=== PATIENT | female | born 1985 | race Caucasian/White ===

== ENCOUNTER → 2016-11-27 | Outpatient (CLI) | payer BC | END | disposition home or self-care (01) | LOC: C.PAPS 13:31 | PROVIDERS: ATTEND Obstetrics & Gynecology | DX: Z01.419 Encounter for gynecological examination (general) (routine) without abnormal findings (principal) ==

== ENCOUNTER → 2016-12-08 | Outpatient (CLI) | payer BC ==
--- NOTE | 2016-12-08 13:25 | MAMMOGRAPHY REPORT ---
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 The patient reports she can feel the lump as well and thinks it has felt l vini that for some time. No skin erythema, thickening, or nipple discharge. No family history of br east cancer. COMPARISON: No prior exams were available for comparison. FINDINGS: Real-time high-resolution sonographic evaluation was performed in the area of palpable luis alfredo mp pointed out by the patient (10:00 right breast, 8-9 cm from the nipple). On palpation, there is a firm ridge of tissue near the axillary tail/axillary crease. On ultrasound, there is a broad fay sition from dense glandular tissue to more pliable fatty echotexture tissue in the 10:00 right breas t in the area of palpable concern. No suspicious solid or cystic mass is identified. IMPRESSION: ACR BI-RADS CATEGORY 2: BENIGN The palpable lump identified by the patient's physician in the 10:00 right breast, 8-9 cm from the n ipple is thought to correlate with the interface between a dense ridge of glandular tissue and softe r fatty tissue, and is benign based on imaging. However, biopsy of a clinically suspicious mass jaimie uld not be precluded by negative imaging. These results and recommendations were discussed with the patient at the time of the exam. Sylwia Woods M.D. ay/:12/08/2016 09:10:52 Bird Keeper: Vanessa SWEET)(Hina), [facility] letter sent: Normal 1/2 BI-RADS Code: ACR BI-RADS Category 2: Benign
== END | disposition home or self-care (01) ==
LOC: C.MAMM 08:51
PROVIDERS: ATTEND Obstetrics & Gynecology
DX: N63 Unspecified lump in breast (principal)

== ENCOUNTER → 2017-06-02 | Outpatient (CLI) | payer BC | END | disposition home or self-care (01) | LOC: C.LAB1850 09:45 | PROVIDERS: ATTEND Obstetrics & Gynecology | DX: Z32.00 Encounter for pregnancy test, result unknown (principal) ==

== ENCOUNTER → 2017-06-18 | Outpatient (CLI) | payer BC ==
[2017-06-18 17:56] LABS: URINE APPEARANCE CLEAR (CLEAR); URINE BILIRUBIN NEG (NEG); URINE COLOR YELLOW; URINE NITRITE NEG (NEG); URINE PH 6.5 (4.5-7.5); URINE SPECIFIC GRAVITY 1.019 (1.000-1.030); UROBILINOGEN NEG (NEG)
[2017-06-18 17:59] LABS: MANUAL MICROSCOPIC REQUIRED? NO; REVIEW REQ? NO
== END | disposition home or self-care (01) ==
LOC: C.LABSPEC 15:54
PROVIDERS: ATTEND Obstetrics & Gynecology
DX: Z34.01 Encounter for supervision of normal first pregnancy, first trimester (principal)

== ENCOUNTER → 2017-06-24 | Outpatient (CLI) | payer BC ==
[2017-06-24 10:09] LABS: BASO % 0.3 %; BASO ABS # 0.02 K/uL (0-0.2); COMPLETE YES; EOS % 1.1 %; HEMATOCRIT 38.1 % (37-47); IG% 0.3 %; LYMPH % 19.8 %; LYMPH ABS # 1.58 K/uL (1.2-3.4); MEAN CELL VOLUME 92.9 fL (80-100); MEAN CORPUSCULAR HEMOGLOBIN 31.5 pg (25-34); MEAN CORPUSCULAR HGB CONC 33.9 g/dl (32-36); MEAN PLATELET VOLUME 9.8 fL (7.4-10.4); MONO % 7.6 %; NEUT % 70.9 %; PLATELET COUNT 257 K/uL (130-400)
[2017-06-28 10:23] LABS: CHLAMYDIA TRACH RNA*** NOT DETECTED (NOT DETECTED); GC (NEIS GONORRHOEAE)RNA** NOT DETECTED (NOT DETECTED)
== END | disposition home or self-care (01) ==
LOC: C.LAB1850 08:54
PROVIDERS: ATTEND Obstetrics & Gynecology
DX: Z34.01 Encounter for supervision of normal first pregnancy, first trimester (principal)

== ENCOUNTER → 2017-10-13 | Outpatient (CLI) | payer BC ==
[2017-10-13 12:17] LABS: HEMATOCRIT 33.9 % (37-47)
[2017-10-13 12:28] LABS: GTGD 50 Grams
[2017-10-13 12:41] LABS: URINE APPEARANCE CLEAR (CLEAR); URINE BILIRUBIN NEG (NEG); URINE COLOR YELLOW; URINE EPITHELIAL CELL AUTO 0-5 /lpf (0-5); URINE NITRITE NEG (NEG); URINE SPECIFIC GRAVITY 1.003 (1.000-1.030); UROBILINOGEN NEG (NEG)
[2017-10-13 12:48] LABS: MANUAL MICROSCOPIC REQUIRED? NO; REVIEW REQ? NO
== END | disposition home or self-care (01) ==
LOC: C.LAB1850 10:04
PROVIDERS: ATTEND Obstetrics & Gynecology
DX: Z34.03 Encounter for supervision of normal first pregnancy, third trimester (principal)

== ENCOUNTER → 2017-11-21 | Outpatient (CLI) | payer BC ==
[2017-11-21 14:15] LABS: HEMATOCRIT 34.4 % (37-47); HEMOGLOBIN 12.2 g/dL (12.0-16.0); MEAN CELL VOLUME 92.5 fL (80-100); MEAN CORPUSCULAR HEMOGLOBIN 32.8 pg (25-34); MEAN CORPUSCULAR HGB CONC 35.5 g/dl (32-36); MEAN PLATELET VOLUME 9.7 fL (7.4-10.4); PLATELET COUNT 216 K/uL (130-400); RED CELL DISTRIBUTION WIDTH CV 12.7 % (11.5-14.5); RED CELL DISTRIBUTION WIDTH SD 42.9 fL (36.4-46.3); WHITE BLOOD COUNT 10.84 K/uL (4.8-10.8)
[2017-11-21 14:38] LABS: ALBUMIN 2.7 gm/dl (3.4-5.0); ALKALINE PHOSPHATASE 101 U/L (45-117); ALT/SGPT 20 U/L (12-78); AST/SGOT 21 U/L (15-37); TOTAL PROTEIN 6.5 gm/dl (6.4-8.2); URIC ACID 3.6 mg/dl (2.6-7.2)
[2017-11-21 15:00] LABS: BASO % 0.2 %; BASO ABS # 0.02 K/uL (0-0.2); EOS % 0.8 %; EOS ABS # 0.09 K/uL (0-0.5); IG# 0.03 K/uL (0.00-0.02); LYMPH % 14.4 %; LYMPH ABS # 1.56 K/uL (1.2-3.4); MONO % 7.2 %; MONO ABS # 0.78 K/uL (0.11-0.59); NEUT % 77.1 %; NEUT ABS # 8.36 K/uL (1.4-6.5)
== END | disposition home or self-care (01) ==
LOC: C.LAB 13:44
PROVIDERS: ATTEND Obstetrics & Gynecology
DX: O16.9 Unspecified maternal hypertension, unspecified trimester (principal)

== ENCOUNTER → 2017-12-02 | Outpatient (CLI) | payer BC ==
[2017-12-02 17:15] LABS: HEMATOCRIT 35.8 % (37-47); HEMOGLOBIN 12.6 g/dL (12.0-16.0); MEAN CELL VOLUME 92.5 fL (80-100); MEAN CORPUSCULAR HEMOGLOBIN 32.6 pg (25-34); MEAN CORPUSCULAR HGB CONC 35.2 g/dl (32-36); MEAN PLATELET VOLUME 9.6 fL (7.4-10.4); PLATELET COUNT 215 K/uL (130-400); RED CELL DISTRIBUTION WIDTH CV 12.9 % (11.5-14.5); RED CELL DISTRIBUTION WIDTH SD 43.3 fL (36.4-46.3); WHITE BLOOD COUNT 11.01 K/uL (4.8-10.8)
[2017-12-02 17:45] LABS: ALKALINE PHOSPHATASE 117 U/L (45-117); ALT/SGPT 20 U/L (12-78); AST/SGOT 22 U/L (15-37)
== END | disposition home or self-care (01) ==
LOC: C.LAB1850 16:05
PROVIDERS: ATTEND Obstetrics & Gynecology
DX: O13.3 Gestational [pregnancy-induced] hypertension without significant proteinuria, third trimester (principal); Z3A.00 Weeks of gestation of pregnancy not specified

== ENCOUNTER → 2017-12-08 | Outpatient (CLI) | payer BC ==
[2017-12-08 12:09] LABS: HEMATOCRIT 36.5 % (37-47); HEMOGLOBIN 12.6 g/dL (12.0-16.0); MEAN CELL VOLUME 92.6 fL (80-100); MEAN CORPUSCULAR HGB CONC 34.5 g/dl (32-36); MEAN PLATELET VOLUME 9.8 fL (7.4-10.4); PLATELET COUNT 218 K/uL (130-400); RED CELL DISTRIBUTION WIDTH CV 12.8 % (11.5-14.5); RED CELL DISTRIBUTION WIDTH SD 43.5 fL (36.4-46.3); WHITE BLOOD COUNT 9.57 K/uL (4.8-10.8)
[2017-12-08 12:31] LABS: ALBUMIN 2.8 gm/dl (3.4-5.0); ALKALINE PHOSPHATASE 121 U/L (45-117); ALT/SGPT 20 U/L (12-78); AST/SGOT 19 U/L (15-37); TOTAL PROTEIN 6.6 gm/dl (6.4-8.2)
== END | disposition home or self-care (01) ==
LOC: C.LAB1850 10:26
PROVIDERS: ATTEND Obstetrics & Gynecology
DX: O13.3 Gestational [pregnancy-induced] hypertension without significant proteinuria, third trimester (principal)

== ENCOUNTER → 2017-12-08 | Outpatient (CLI) | payer BC | END | disposition home or self-care (01) | LOC: C.LABSPEC 11:14 | PROVIDERS: ATTEND Obstetrics & Gynecology | DX: Z34.03 Encounter for supervision of normal first pregnancy, third trimester (principal) ==

== ENCOUNTER → 2017-12-17 | Outpatient (CLI) | payer BC ==
[~2017-12-17] MED LIST: PRENTAB26 PO
[2017-12-17 13:31] LABS: HEMATOCRIT 36.4 % (37-47); HEMOGLOBIN 12.6 g/dL (12.0-16.0); MEAN CELL VOLUME 93.1 fL (80-100); MEAN CORPUSCULAR HEMOGLOBIN 32.2 pg (25-34); MEAN CORPUSCULAR HGB CONC 34.6 g/dl (32-36); PLATELET COUNT 219 K/uL (130-400); RED CELL DISTRIBUTION WIDTH CV 12.9 % (11.5-14.5); RED CELL DISTRIBUTION WIDTH SD 43.8 fL (36.4-46.3); WHITE BLOOD COUNT 10.98 K/uL (4.8-10.8)
[2017-12-17 14:05] LABS: ALBUMIN 2.7 gm/dl (3.4-5.0); ALKALINE PHOSPHATASE 129 U/L (45-117); ALT/SGPT 17 U/L (12-78); AST/SGOT 16 U/L (15-37); TOTAL PROTEIN 6.7 gm/dl (6.4-8.2)
== END | disposition home or self-care (01) ==
LOC: C.LAB1850 11:52
PROVIDERS: ATTEND Obstetrics & Gynecology
DX: O13.3 Gestational [pregnancy-induced] hypertension without significant proteinuria, third trimester (principal)

== ENCOUNTER → 2017-12-18 | Outpatient (CLI) | payer BC | END | disposition home or self-care (01) | LOC: C.LAB1850 11:44 | PROVIDERS: ATTEND Obstetrics & Gynecology | DX: O13.3 Gestational [pregnancy-induced] hypertension without significant proteinuria, third trimester (principal) ==

== ENCOUNTER 2017-12-19 18:58 | Outpatient (CLI) | payer BC ==
[~2017-12-19] VITALS: Ht 167.6 cm; Wt 63.0 kg
[2017-12-19 21:19] VITALS: Ht 167.6 cm; Wt 63.0 kg
[2017-12-20] MEDS ORDERED: PRENTAB26 PO ×2 (09:13)
== END 2017-12-19 21:14 | disposition home or self-care (01) ==
LOC: C.LD 18:58 → C.OPB 18:58
PROVIDERS: ATTEND Obstetrics & Gynecology
DX: O16.3 Unspecified maternal hypertension, third trimester (principal); Z3A.37 37 weeks gestation of pregnancy

== ENCOUNTER 2017-12-20 07:40 | Inpatient (IN) | payer BC ==
[~2017-12-20] VITALS: Ht 167.6 cm; Wt 78.9 kg
[2017-12-20] MEDS ORDERED: LACTATED RINGER'S 1000ML 1,000 ML IV PRN (08:25)
[2017-12-20] MEDS ORDERED: LACTATED RINGER'S 1000ML 500 ML IV PRN ×2 (08:25→14:28)
[2017-12-20] MEDS ORDERED: PATIENT'S HEIGHT AND/OR WEIGHT NEEDED SCH (08:30)
[2017-12-20] MEDS ORDERED: PATIENT'S ALLERGY INFO NEEDS ENTERED SCH (08:30)
[2017-12-20 08:50] LABS: HEMATOCRIT 35.3 % (37-47); HEMOGLOBIN 12.2 g/dL (12.0-16.0); MEAN CELL VOLUME 91.5 fL (80-100); MEAN CORPUSCULAR HEMOGLOBIN 31.6 pg (25-34); MEAN CORPUSCULAR HGB CONC 34.6 g/dl (32-36); MEAN PLATELET VOLUME 9.8 fL (7.4-10.4); PLATELET COUNT 215 K/uL (130-400); RED CELL DISTRIBUTION WIDTH CV 12.7 % (11.5-14.5); RED CELL DISTRIBUTION WIDTH SD 42.2 fL (36.4-46.3); WHITE BLOOD COUNT 10.44 K/uL (4.8-10.8)
[2017-12-20] MEDS: LACTATED RINGER'S 1000ML 1,000 ML IV SCH ×3 (09:00→19:32)
[2017-12-20] MEDS: OXYTOCIN 30 UNITS/500ML NSS IV PRN (09:02)
[2017-12-20 09:07] LABS: ALBUMIN 2.5 gm/dl (3.4-5.0); ALT/SGPT 19 U/L (12-78); BLOOD UREA NITROGEN 4 mg/dl (7-18); CALCIUM 8.2 mg/dl (8.5-10.1); CARBON DIOXIDE 21 mmol/L (21-32); CREATININE 0.65 mg/dl (0.60-1.20); GLUCOSE 92 mg/dl (70-99); POTASSIUM 3.5 mmol/L (3.5-5.1); SODIUM 138 mmol/L (136-145)
[2017-12-20 09:11] LABS: ALKALINE PHOSPHATASE 133 U/L (45-117); AST/SGOT 23 U/L (15-37); TOTAL PROTEIN 6.2 gm/dl (6.4-8.2)
[2017-12-20 09:12] VITALS: Ht 167.6 cm; Wt 78.9 kg
[2017-12-20] MEDS ORDERED: PRENTAB26 PO ×2 (09:13)
[2017-12-20] MEDS ORDERED: BUPIVACAINE 0.25% 30 ML VIAL ONE (14:21)
[2017-12-20] MEDS ORDERED: FENTANYL 2MCG/ML ROPIV 1.25MG/ML 100ML BAG EPI ONE (14:22)
[2017-12-20] MEDS: EpHEDrine SULFATE INJ 50 MG/ML AMP ONE (14:22)
[2017-12-20] MEDS ORDERED: FENTANYL CITRATE INJ 50 MCG/1 ML 2 ML VIAL ONE (14:22)
[2017-12-20] MEDS ORDERED: NALOXONE HCL INJ 1 MG in SODIUM CHLORIDE 0.9% 1000ML 1,000 ML IV PRN (14:28)
[2017-12-20] MEDS ORDERED: DiphenhydrAMINE HCL 50 MG/ML VIAL IV PRN (14:30)
[2017-12-20] MEDS ORDERED: NALOXONE HCL INJ 0.4 MG/1 ML VIAL/CARP IV PRN (14:30)
[2017-12-20] MEDS ORDERED: NALBUPHINE HCL INJ 10 MG/ML AMP IV PRN (14:30)
[2017-12-20] MEDS ORDERED: ONDANSETRON INJ 2 MG/ML 2 ML VIAL IV PRN (14:30)
[2017-12-20] MEDS ORDERED: EpHEDrine SULFATE INJ 50 MG/ML AMP IV PRN (14:30)
[2017-12-20] MEDS: FENTANYL 2MCG/ML ROPIV 1.25MG/ML 100ML BAG EPI PRN ×2 (18:59→22:30)
[2017-12-20] MEDS ORDERED: ACETAMINOPHEN 325 MG TAB PO STA (19:34)
[2017-12-20] MEDS ORDERED: ACETAMINOPHEN 325 MG TAB ONE (19:37)
[2017-12-21] MEDS: LACTATED RINGER'S 1000ML 1,000 ML IV SCH (03:30)
[2017-12-21] MEDS: FENTANYL 2MCG/ML ROPIV 1.25MG/ML 100ML BAG EPI PRN (05:20)
[2017-12-21] MEDS: OXYTOCIN 30 UNITS/500ML NSS IV PRN (07:00)
--- NOTE | 2017-12-21 07:07 | Anesthesia Procedure Note ---
Anesthesia Epidural Removal Nt Date & Time Dec 21, 2017 at 07:06 Vital Signs Pain Intensity: 0.0 Notes Mental Status: alert / awake / arousable, participated in evaluation Nausea / Vomiting: adequately controlled Pain: adequately controlled Airway Patency, RR, SpO2: stable & adequate BP & HR: stable & adequate Hydration State: stable & adequate Neuraxial Anesthesia: was administered, sensory block is resolving Anesthetic Complications: no major complications apparent, pt satisfied with anesthetic care Epidural: removed without complications, with tip intact
[2017-12-21] MEDS ORDERED: MISOPROSTOL 200 MCG TAB ONE (07:10)
[2017-12-21] MEDS ORDERED: ACETAMINOPHEN 325 MG TAB PO PRN (07:15)
[2017-12-21] MEDS ORDERED: OXYTOCIN 30 UNITS/500ML NSS IV PRN (07:15)
[2017-12-21] MEDS ORDERED: BENZOCAINE 20% AER SPR 82.5 GM CAN EXT PRN (07:15)
[2017-12-21] MEDS ORDERED: DIPHTHERIA/TETANUS/PERTUSSIS 0.5 ML SYR/VIAL IM. ONE (07:15)
[2017-12-21] MEDS ORDERED: MISOPROSTOL 200 MCG TAB PR SCH (07:15)
[2017-12-21] MEDS ORDERED: SUPERCREAM 0.870 % 15GM JAR EXT PRN (07:15)
[2017-12-21] MEDS ORDERED: HYDROCORTISONE ACETATE 25 MG SUPP PR PRN (07:15)
[2017-12-21] MEDS ORDERED: LANOLIN OINT EXT PRN (07:15)
[2017-12-21] MEDS: EpHEDrine SULFATE INJ 50 MG/ML AMP ONE (07:18)
--- NOTE | 2017-12-21 07:24 | DELIVERY SUMMARY ---
DATE OF OPERATION: 12/21/2017 PREOPERATIVE DIAGNOSES: 1. Gestational hypertension at full term. 2. Induction of labor. 3. Group B strep negative. POSTOPERATIVE DIAGNOSES: Same. PROCEDURE: Spontaneous vaginal deliver and repair of second degree perineal laceration. SURGEON: Kristin George MD. BAG FILLER MACHINE OPERATOR: None. ESTIMATED BLOOD LOSS: 600 mL. COMPLICATIONS: None. DISPOSITION: Stable in labor and delivery. DESCRIPTION: Ynes was in induction due to gestational hypertension at 37+ weeks. Her induction began with a Doyle bulb placed by my partner and on the morning of December 20, I assumed care of the patient after she had been started on Pitocin. Pitocin was run through the day and its progress was steady but slow. Eventually we reached 20 units of Pitocin and had still not created an adequate contraction pattern, therefore, an IUPC was placed and was used to titrate for adequate MUVs. Of note, the Pitocin dose required was fairly high and she ultimately was on 34 milliunits per minute before delivery. The patient did receive an epidural for pain management. Artificial rupture of membranes showed clear fluid earlier in the labor. When the patient was completely dilated and +3 station, she was coached through her second stage of labor which was very brief. She pushed well and delivered the head of the infant in the occiput anterior position with the anterior and posterior shoulders following with no difficulty whatsoever despite the having its arm hyperflexed and its fist near its face in a compound presentation. The reminder of the infant's torso and legs delivered again with no difficulty and a vigorous infant was placed on the maternal abdomen. The cord was doubly clamped, cut by the father of the baby. The placenta was then delivered spontaneously and noted to be intact with a 3-vessel cord. Examination of the cervix, vagina and perineum revealed a second-degree perineal laceration. Of note, the uterus was also bleeding fairly briskly. Bimanual massage did stem the flow, however, adequate abundance of caution and because I assumed her Pitocin receptors were essentially saturated, we did place the 1000 mcg of Cytotec rectally. Her repair proceeded with Vicryl suture in the usual fashion with a running locked stitch and a crown suture to rebuild the perineal body. After completion of repair, the fundus was firm, lochia was small and mother and baby were both in stable condition. I estimated her current EBL at 600 mL throughout the delivery. At present, again, her lochia is small. I attest to the content of the Intraoperative Record and any orders documented therein. Any exception s are noted below.
[2017-12-21] MEDS ORDERED: LACTATED RINGER'S 1000ML 1,000 ML IV SCH (08:00)
[2017-12-21] MEDS ORDERED: PRENATAL VITAMIN TAB PO SCH (08:00)
[2017-12-21] MEDS: DOCUSATE SODIUM 100 MG CAP PO SCH ×3 (08:53→19:44)
[2017-12-21] MEDS: PRENATAL VITAMIN TAB PO SCH (08:53)
[2017-12-21 09:40] VITALS: BP 112/65; PULSE 130; TEMP 37.2
[2017-12-21] MEDS: IBUPROFEN 600 MG TAB PO PRN ×2 (10:45→19:45)
[2017-12-21 11:00] VITALS: BP 115/80; PULSE 121; TEMP 36.8
[2017-12-21 15:46] VITALS: BP 114/80; PULSE 73; TEMP 36.7; O2SAT 97
[2017-12-21 19:40] VITALS: BP 116/74; PULSE 85; TEMP 36.6
[2017-12-21 23:30] VITALS: BP 112/76; PULSE 73; TEMP 36.6
[2017-12-22 04:03] VITALS: BP 113/73; PULSE 86; TEMP 36.7
--- NOTE | 2017-12-22 06:44 | Progress Note ---
Subjective Dec 22, 2017. Subjective conversation w/ patient, physical exam, lab review Ambulation: ambulating normally Voiding: no incontinence Diet Tolerance: Regular Diet Lochia: Moderate Objective Vital Signs Date Time Temp Pulse Resp B/P (MAP) Pulse Ox O2 Delivery O2 Flow Rate FiO2 12/22/17 04:03 36.7 86 16 113/73 (86) Room Air 12/21/17 23:30 36.6 73 18 112/76 (88) Room Air 12/21/17 23:30 Room Air 12/21/17 19:40 36.6 85 18 116/74 (88) Room Air 12/21/17 15:46 Room Air 12/21/17 15:46 36.7 73 16 114/80 (91) 97 Room Air 12/21/17 11:00 36.8 121 16 115/80 (92) Room Air 12/21/17 09:40 Room Air 12/21/17 09:40 37.2 130 18 112/65 (81) Room Air Physical Exam General Appearance: WELL-APPEARING Abdomen: non tender Fundus: Firm Extremities: no calf tenderness Laboratory Results Last 24 Hours Test 12/22/17 04:44 Assessment and Plan Post- Day#: 1 Continue Routine Care: Continue current care doing well
[2017-12-22 07:22] LABS: HEMOGLOBIN 10.8 g/dL (12.0-16.0)
[2017-12-22] MEDS: PRENATAL VITAMIN TAB PO SCH (07:33)
[2017-12-22] MEDS: IBUPROFEN 600 MG TAB PO PRN ×2 (07:34→19:57)
[2017-12-22 08:35] VITALS: BP 120/81; PULSE 72; TEMP 36.8
[2017-12-22 15:35] VITALS: BP 126/86; PULSE 70; TEMP 36.8
--- NOTE | 2017-12-22 18:41 | Discharge Instructions ---
Discharge Instructions Date of Service Dec 22, 2017. Admission Reason for Admission: Induction Discharge Discharge Diagnosis / Problem: Vaginal Delivery Discharge Goals Goal(s): Routine recovery after delivery Medications Continue Dispensed Medications: supercream, dermaplast, tucks, lansinoh Activity Recommendations Activity Limitations: per Instructions/Follow-up section . Instructions / Follow-Up Instructions / Follow-Up ACTIVITY RECOMMENDATIONS: * Gradual return to full activity over the next 2-3 weeks. * No lifting - nothing heavier than baby over the next 2-3 weeks. * Do not engage in vigorous exercise, sexual activity or sports until cleared by your physician. * Do not drive or operate any motorized equipment until cleared by your physician. * You may shower/bathe daily. MEDICATIONS: For discomfort or pain, you may use Acetaminophen (Tylenol), Ibuprofen (Advil), or Naproxen (Aleve) following the package directions. For constipation you may use Colace following the package directions. BREAST CARE: If you are not breast feeding: * Wear a supportive bra 24 hours a day for one to two weeks. * Avoid stimulating your breasts and nipples as much as possible during the first few weeks after delivery. * When taking a shower, have the warm water hit your back, not breasts. * When your breasts feel full, apply ice packs. Usually three to four times a day helps ease the discomfort. * Take a mild pain medication (Tylenol / Motrin) when you are uncomfortable. If breast feeding: * Use breast milk to lubricate nipples. Lansinoh cream may be used for sore nipples. You do not need to remove cream prior to breast feeding. If using a different brand of cream, check the label for directions regarding removal of cream prior to nursing. * Wear a supportive bra. * If having problems with breasts or breast feeding, call a senior talent management consultant or your health care provider. EPISIOTOMY CARE: After delivery, if you have an episiotomy (stitches), the following steps will ease discomfort and aid healing. * For the first 24 hours after delivery, place ice packs next to your episiotomy to help reduce swelling. * After the first 24 hour-period, sitz baths, either portable or in the tub, are suggested. A shower with a shower arm sprayed over the episiotomy may be comforting. * Chinyere care should be done after each voiding and bowel movement. Squirt warm water from a plastic bottle over the perineum (region of the body between the anus and urinary opening) and pat dry. * Use Dermoplast to ease discomfort. Shake container. [place] directly over the episiotomy. Place a Tucks on a clean sanitary pad next to your episiotomy. SPECIAL CARE INSTRUCTIONS: When you are discharged from the hospital, it is important for you to follow the instructions listed below: * During the first week at home, you should be able to care for yourself and your baby. In addition, the usual light household activities are encouraged. * Limit your activities to the way you feel. Do not try to clean the house or move furniture. Be sensible. * If you actively engage in sports and have done so up until the time of your delivery, you may resume these activities as soon as you feel able. This may take up to one month or even longer. Use good judgment. * Continue to take your vitamins for at least six weeks after the of your baby. * Your diet need not be limited unless you were on a special diet before your delivery. Breast-feeding mothers need around 2500 calories per day and at least 64-80 ounces of fluid per day (8 to 10 glasses). * You should eat foods from the four major food groups. Crash diets or fad diets are to be avoided. Eating lean meats, fresh fruits and vegetables, low-fat dairy products, high fiber foods and a regular exercise program, will help you get back to your pre- weight without putting your health at risk. * Constipation is sometimes a problem after delivery. Take a mild laxative as needed. If breast feeding, Milk of Magnesia is acceptable to use. You may use a suppository or Fleets enema if no episiotomy. * A daily shower or tub bath is suggested. Be sure to thoroughly and gently dry the perineum. * A bloody vaginal discharge will usually continue until around four weeks post . A small amount of bleeding may continue for as long as six weeks. Vaginal discharge changes from the bright red bleeding after delivery to pink then brownish and finally yellowish-pink before becoming white and disappearing. * Bleeding may increase with activity. Your first period may come in 4-8 weeks. If you are breast feeding, your period may be delayed even longer. * [place] (sex) can begin whenever both you and your partner feel comfortable and do not have any form of genital infection. It is recommended that you wait at least six weeks for internal and external healing to occur. If you have questions, please talk to your health care practitioner. A condom should be used to prevent infection and . * Foreplay, gentle intercourse and lubrication is very important the first several times to prevent pain. A water-based lubricant such as K-Y jelly or Astroglide may be used. * If you have RH negative blood and your baby is RH positive, you will receive RHOGAM by injection prior to discharge. The nurse will give you a card to keep with you that has the date and place that you received RHOGAM after delivery. * During your care, you had a Rubella screen done to check for the presence of rubella antibodies in your blood. If your test was negative, you will receive a Rubella vaccine prior to discharge. This vaccine may cause a fever, soreness at the injection site and flu-like symptoms. If these symptoms persist, notify your health care practitioner. is not advised for one month after a Rubella vaccine. * Verbalizes understanding of car seat law as reviewed with patient nursing. * Car Seat hand-out given and reviewed with patient by nursing. * Shaken baby information reviewed with patient by nursing. Call you doctor if: * Heavy bleeding (saturating several pads an hour) or passing clots the size of your fist. * A fever >101 degrees F (38.3 degrees C) on two occasions four hours apart and /or chills. * Unusual pain in the pelvic or vaginal areas. * "Baby Blues" lasting longer than two weeks. If you have any questions or concerns, call your health care practitioner at . FOLLOW UP VISIT: * Please call the office at to schedule a 6 week examination. It is important you keep this appointment. It is important for you to make arrangements for either yearly or twice yearly check-ups thereafter. Current Hospital Diet Patient's current hospital diet: Regular OB Diet Discharge Diet Recommended Diet: Regular Diet Pending Studies Studies pending at discharge: no Medical Emergencies . Who to Call and When: Medical Emergencies: If at any time you feel your situation is an emergency, please call 911 immediately. . Non-Emergent Contact Non-Emergency issues call your: Primary Care Provider . . "Provider Documentation" section prepared by Andria Morales. . VTE Core Measure Inpt VTE Proph given/why not?: Treatment not indicated
[2017-12-22] MEDS: DOCUSATE SODIUM 100 MG CAP PO SCH (19:56)
[2017-12-22 23:35] VITALS: BP 123/79; PULSE 76; TEMP 36.6
--- NOTE | 2017-12-23 06:39 | Progress Note ---
Subjective Dec 23, 2017. Subjective conversation w/ patient (Patient seen and examined at the bedside) Ambulation: ambulating normally Voiding: no incontinence Diet Tolerance: Regular Diet Lochia: Moderate Feeding Type: Bottle Feeding Pain: 3/10 vaginal pain, controlled w/motrin Review of Systems Constitutional: No fever, No chills, No sweats Respiratory: No cough, No shortness of breath Cardiac: No chest pain Abdomen: No pain, No nausea, No vomiting Female : No dysuria Objective Vital Signs Date Time Temp Pulse Resp B/P (MAP) Pulse Ox O2 Delivery O2 Flow Rate FiO2 12/22/17 23:35 36.6 76 16 123/79 (94) Room Air 12/22/17 23:35 Room Air 12/22/17 15:37 Room Air 12/22/17 15:35 36.8 70 16 126/86 (99) Room Air 12/22/17 08:38 Room Air 12/22/17 08:35 36.8 72 16 120/81 (94) Room Air Physical Exam General Appearance: WELL-APPEARING, WD/WN, NO APPARENT DISTRESS Respiratory/Chest: chest non-tender, lungs clear, normal breath sounds, no respiratory distress, no accessory muscle use Cardiovascular: regular rate, rhythm, no edema, no gallop, no murmur Abdomen: non tender, soft Fundus: Firm, Non-Tender, Relation to Umbilicus (at u) Extremities: normal inspection, no pedal edema, no calf tenderness Laboratory Results Last 24 Hours Test 12/22/17 06:53 Hemoglobin 10.8 g/dL Hematocrit 31.0 % Medications Current Inpatient Medications Medications (Trade) Dose Ordered Sig/Jacky Route Start Time Stop Time Status Last Admin Dose Admin Lactated Ringer's 1,000 ml @ 200 mls/hr Q5H IV 12/21/17 08:00 01/20/18 07:59 Oxytocin (Pitocin IV) 30 units UD PRN IV 12/21/17 07:15 01/20/18 07:14 Benzocaine (Dermoplast Aero Spr) 1 appln PRN PRN EXT 12/21/17 07:15 01/20/18 07:14 12/21/17 08:53 1 APPLN Cocaine HCl (Supercream 0.870% Cr) BID PRN EXT 12/21/17 07:15 01/04/18 07:14 Hydrocortisone Acetate (Anusol Hc Supp) 25 mg BID PRN MD 12/21/17 07:15 01/20/18 07:14 Lanolin (Lanolin Oint) PRN PRN EXT 12/21/17 07:15 01/20/18 07:14 Prenat Multivit/ [place]/Iron/Folic Ac ( Vitamin Tab) 1 tab DAILY PO 12/21/17 08:00 01/20/18 07:59 12/22/17 07:33 1 TAB Ibuprofen (Motrin Tab) 600 mg Q4H PRN PO 12/21/17 07:15 01/20/18 07:14 12/22/17 19:57 600 MG Acetaminophen (Tylenol Tab) 650 mg Q6H PRN PO 12/21/17 07:15 01/20/18 07:14 Docusate Sodium (coLACE CAP) 100 mg BID PO 12/21/17 08:00 01/20/18 07:59 12/22/17 19:56 100 MG Assessment and Plan Post- Day#: 2 Continue Routine Care: 32 year old s/p NVD day 2 - pt doing well clinically - B+, GBS -ve and rubella immune - vitals reviewed and wnl - continue to encourage ambulation - motrin prn for pain - Hgb stable. 12.2 -> 10.8 - review d/c instructions as pt ready for d/c today Resident Physician Supervision Note: I was present with Dr. Morales during the history and exam. I discussed the case with the resident and agree with the findings and plan as documented in the note. Any exceptions or clarifications are listed here: PPD#2 doing well. Discharge home today. RTO 6w. Documented By: Danyell Rogers Resident Tracking Resident Involvement: Resident Care Provided Care Provided: OB Delivery
[2017-12-23 07:45] VITALS: BP 113/87; PULSE 71; TEMP 36.5; O2SAT 98
[2017-12-23] MEDS: PRENATAL VITAMIN TAB PO SCH (08:10)
[2017-12-23] MEDS: DOCUSATE SODIUM 100 MG CAP PO SCH (08:10)
[2017-12-23 11:30] VITALS: BP_DIAS 87; PULSE 71; TEMP 36.5
== END 2017-12-23 11:31 | disposition home or self-care (01) | DRG 775 ==
LOC: C.LD 07:40 → C.OBG 12-21 09:41
PROVIDERS: ADMIT Obstetrics & Gynecology; ATTEND Obstetrics & Gynecology
PROC: 3E033VJ Introduction of Other Hormone into Peripheral Vein, Percutaneous Approach (ICD-10-PCS; 2017-12-20)
PROC: 10E0XZZ Delivery of Products of Conception, External Approach (ICD-10-PCS; principal; 2017-12-21)
PROC: 3E0P7GC Introduction of Other Therapeutic Substance into Female Reproductive, Via Natural or Artificial Opening (ICD-10-PCS; principal; 2017-12-21)
PROC: 0KQM0ZZ Repair Perineum Muscle, Open Approach (ICD-10-PCS; principal; 2017-12-21)
DX: O13.4 Gestational [pregnancy-induced] hypertension without significant proteinuria, complicating childbirth (principal); O70.1 Second degree perineal laceration during delivery; O32.6XX0 Maternal care for compound presentation, not applicable or unspecified; Z3A.37 37 weeks gestation of pregnancy; Z37.0 Single live birth

== ENCOUNTER 2021-06-24 11:59 | Inpatient (IN) ==
--- NOTE | 2021-06-24 13:00 | History & Physical Report ---
Date of Service June 24, 2021 Assessment & Plan (1) : Plan: 35 y/o at 38 6/7 wga presenting with elevated BPs Mild range BPs Fetus cat 1 Elevated BPs - not quite meeting criteria for gHTN yet but continues to have mild range BPs on arrival. Will get labs to r/o PET. Discussed dx of gHTN would be mild range BPs >4hrs apart so will continue to monitor until at least then. If meets criteria, would then recommend induction due to GA and pt jin kendall understanding. Ample time given for questions, answered to apparent satisfaction. History of Present Illness Chief Complaint: elevated BPs Primary Care Provider: NO PCP 35 y/o at 38 6/7 wga w/ MIRTHA 07/02 by US presents to L&D after noting elevated BPs in clinic. G1 c/b gHTN and induction at 37 weeks. Has been on baby asa during this and had normal BPs until clinic today where she had bps of 140s/80s-90s and was sent to L&D for further eval. On arrival, +FM; denies ctx, LOF, VB. Denies NAVARRO, vision change, CP, SOB, RUQ/epigastric pain. PNI: G1 gHTN Past PURCHASING OFFICER Hx: G1 2018 , gHTN G2 current irreg cycles 03/2019 neg cotest denies hx STI Allergies Allergy/AdvReac Type Severity Reaction Status Date / Time erythromycin base Allergy Unknown GI SYMPTOMS Verified 06/24/21 10:36 Home Medications Medication Instructions Recorded Confirmed Type prenat.vits,phillip,dvf-gjgh-rnnom 1 tab PO DAILY 11/06/20 06/24/21 History Patient History Medical History (Updated 11/29/20 @ 10:24 by Kam Summers MD) Amenorrhea Breast lump or mass Melanoma Varicella Surgical History H/O oral surgery History of anterior cruciate ligament surgery S/P appendectomy Family History Father Hypertension Mother Thyroid disease Denies family history of Ovarian cancer Breast cancer Colorectal cancer Social History (Updated 11/06/20 @ 09:04 by Bina Feliz) Smoking Status: Never smoker Second Hand Exposure: No; Do You Dip or Chew Tobacco: No; Hx Alcohol Use: No Hx Substance Use: No Preferred Language: Liberian Communication Ability: Effective Cardiovascular Radiologic Technologist Required: No Beliefs That Will Affect Care: None marital status: marital status details: Brannon Watts (34) [phone] Current Living Situation: Family Current Living Situation Comment: Pt lives with , daughter, and a dog. current occupational status: employed current occupation: [employer] Other Information That Helps Us Care for You: No Feels Safe at Home: Yes Safety Concerns: Feels Safe At This Time Assistive Devices: None Physical Exam Constitutional: WD/WN, vitals as above Respiratory: normal respiratory effort; no respiratory distress and no labored breathing Psychiatric: A+Ox3, euthymic affect Genitourinary: OB Exam Abdomen: + vertex (confirmed by BSUS) Manual OB Exam: + cervical dilation 1 cm, + cervical effacement 50% and + station -2 OB Exam Monitor Tracing: + external FHT monitor used, + external uterine monitor us ed (irritability) and + category I (150/mod/+accel/-decel) Results & Data ([facility]) Vital Signs (Past 12 Hours) Vital Signs Pulse BP 06/24/21 12:51 129 H 146/90 H 06/24/21 12:34 121 H 145/87 H 06/24/21 12:29 117 H 143/82 H 06/24/21 12:20 109 H 146/85 H 06/24/21 12:12 121 H 156/88 H Laboratory Results OB Labs: Blood Type B Positive 11/13/20 Antibody Screen NEGATIVE 11/13/20 Hemoglobin 10.7 g/dL (12.0-16.0) L 05/05/21 Hematocrit 31.5 % (37-47) L 05/05/21 Mean Corpuscular Volume 93.1 fL (80-100) 11/13/20 Platelet Count 273 K/uL (130-400) 11/13/20 Rubella IgG Antibody Immune (Immune) 11/13/20 Rapid Plasma Reagin Nonreactive (Nonreactive) 11/13/20 Hepatitis B Surface Antigen Neg (Neg) 11/13/20 HIV (1&2) Ab and P24 Ag, 4th Gener Neg (Neg) 11/13/20 Glucose 1 Hour 50 gm Load 110 mg/dl (70-130) 05/05/21 OB Optional Labs: Chlamydia trachomatis RNA NOT DETECTED (NOT DETECTED) 11/29/20 Neisseria gonorrhoeae RNA NOT DETECTED (NOT DETECTED) 11/29/20 Labs Reviewed: cfdna low risk declines cf/sma declines AFP GBS neg Diagnostic Findings posterior plac Coding Level of Care Code None Diagnoses Z34.90
[2021-06-24 13:10] LABS: Hematocrit (blood only) 30.7 % (37-47); Hemoglobin 10.3 g/dL (12.0-16.0); Mean Corpuscular Hemoglobin 29.9 pg (25-34); Mean Corpuscular Hgb Conc 33.6 g/dL (32-36); Mean Platelet Volume 10.3 fL (7.4-10.4); Platelet Count 261 K/uL (130-400); RDW Coefficient of Variation 12.6 % (11.5-14.5); RDW Standard Deviation 40.5 fL (36.4-46.3); Red Blood Count 3.45 M/uL (4.2-5.4); White Blood Count 9.94 K/uL (4.8-10.8)
[2021-06-24 13:37] LABS: Albumin Level 2.5 gm/dl (3.4-5.0); BUN Creatinine Ratio 8.6 (10-20); Calcium 9.1 mg/dl (8.5-10.1); Creatinine Clr Calc Pharmacy 143.9 ml/min; Est GFR (African American) 139.6 ml/min; Est GFR (Non-African American) 120.4 ml/min; Potassium 3.6 mmol/L (3.5-5.1)
[2021-06-24 13:41] LABS: Albumin Globulin Ratio 0.6 (0.9-2); Bilirubin,Total 0.3 mg/dl (0.2-1); Globulin 4.2 gm/dl (2.5-4.0); Total Protein 6.7 gm/dl (6.4-8.2)
[2021-06-24 13:46] LABS: Creatinine Urine Random 13.1 mg/dl; Total Protein Urine Random < 5.0 mg/dl (0-11.9)
[2021-06-24] MEDS ORDERED: OXYTOCIN 30 UNITS/500 ML BAG IV PRN ×2 (15:14→15:16)
[2021-06-24] MEDS: LACTATED RINGER'S 1,000 ML IV PRN ×2 (15:47→20:18)
--- NOTE | 2021-06-24 15:49 | Labor Progress Brief Note ---
Date of Service June 24, 2021 Subjective Met w/ pt and reviewed normal PIH labs however now meets criteria for gHTN with mild BPs > 4hrs apart. Discussed recommendation for induction given GA, pt amenable to starting with alas bulb Assessment & Plan (1) Gestational hypertension: Plan: 35 y/o at 38 6/7 wga now admitted with gHTN VSS - normal to mild range BPs Fetus cat 1 gHTN - PIH labs wnl, UP:C TNP but suspect negative given very low protein. Will start with alas bulb and verbal consent was obtained after reviewing risks. 35cc alas bulb placed, pt tolerated well. Will start pitocin as well GBS neg Epidural PRN Admission and Anticipated Discharge Date Admission Date: June 24, 2021 Physical Exam Genitourinary: OB Exam Abdomen: + estimated weight (7-8) Manual OB Exam: + cervical dilation 1 cm, + cervical effacement 50% and + station -2 OB Exam Monitor Tracing: + external FHT monitor used, + external uterine monitor used (irritability) and + category I (150/mod/+accel/-decel) [facility]) Vital Signs (Past 12 Hours) Vital Signs Temp Pulse Resp BP 06/24/21 15:05 98.4 F 20 06/24/21 15:02 87 152/87 H 06/24/21 14:47 93 H 139/82 06/24/21 14:32 96 H 131/78 06/24/21 14:18 91 H 133/85 06/24/21 13:59 105 H 132/86 06/24/21 13:55 101 H 131/87 06/24/21 13:13 111 H 135/84 06/24/21 13:01 120 H 159/84 H 06/24/21 12:51 129 H 146/90 H 06/24/21 12:34 121 H 145/87 H 06/24/21 12:29 117 H 143/82 H 06/24/21 12:20 109 H 146/85 H 06/24/21 12:12 121 H 156/88 H Coding Level of Care Code None Diagnoses Gestational hypertension O13.9
--- NOTE | 2021-06-24 20:03 | Labor Progress Brief Note ---
Date of Service June 24, 2021 Subjective Notes cramping Assessment & Plan (1) Gestational hypertension: Plan: 35 y/o at 38 6/7 wga admitted with gHTN VSS - normal to mild range BPs Fetus cat 1 Labor - pit at 8, now s/p arom, continue augmentation GBS neg Epidural PRN Admission and Anticipated Discharge Date Admission Date: June 24, 2021 Physical Exam Genitourinary: Manual OB Exam: + cervical dilation 4 cm, + cervical effacement 70%, + station -2 and + amniotic fluid (AROM clear) OB Exam Monitor Tracing: + external FHT monitor used, + external uterine monitor used (q3-4min) and + category I (1535/mod/+accel/-decel) Results & Data ([facility]) Vital Signs (Past 12 Hours) Vital Signs Temp Pulse Resp BP 06/24/21 19:00 98.2 F 82 16 131/83 06/24/21 18:52 82 131/83 06/24/21 17:52 81 140/82 06/24/21 16:52 75 128/86 06/24/21 15:51 77 151/90 H 06/24/21 15:05 98.4 F 20 06/24/21 15:02 87 152/87 H 06/24/21 14:47 93 H 139/82 06/24/21 14:32 96 H 131/78 06/24/21 14:18 91 H 133/85 06/24/21 13:59 105 H 132/86 06/24/21 13:55 101 H 131/87 06/24/21 13:13 111 H 135/84 06/24/21 13:01 120 H 159/84 H 06/24/21 12:51 129 H 146/90 H 06/24/21 12:34 121 H 145/87 H 06/24/21 12:29 117 H 143/82 H 06/24/21 12:20 109 H 146/85 H 06/24/21 12:12 121 H 156/88 H Coding Level of Care Code None Diagnoses Gestational hypertension O13.9
[2021-06-24] MEDS ORDERED: ePHEDrine sulfate 50 MG/ML AMP ONE (20:32)
[2021-06-24] MEDS ORDERED: fentaNYL citrate 100 MCG/2 ML VIAL ONE (20:33)
[2021-06-24] MEDS ORDERED: BUPIVACAINE 0.25% 30 ML VIAL ONE (20:33)
[2021-06-24] MEDS ORDERED: SODIUM CHLORIDE 0.9% INJ 10 ML VIAL ONE (20:33)
[2021-06-24] MEDS ORDERED: fentaNYL 2MCG/ML ROPIVACAINE 1.25MG/ML 100 ML BAG EPI ONE (20:34)
[2021-06-24] MEDS ORDERED: NALBUPHINE HCL INJ 10 MG/ML AMP IV PRN (21:23)
[2021-06-24] MEDS ORDERED: ONDANSETRON INJ 2 MG/ML 2 ML VIAL IV PRN (21:23)
[2021-06-24] MEDS ORDERED: NALOXONE HCL 1 MG in SODIUM CHLORIDE 0.9% 1000ML 1,000 ML IV PRN (21:23)
[2021-06-24] MEDS ORDERED: diphenhydrAMINE 50 MG/ML VIAL IV PRN (21:23)
[2021-06-24] MEDS ORDERED: NALOXONE HCL 0.4 MG/1 ML VIAL/CARP IV PRN (21:23)
[2021-06-24] MEDS ORDERED: fentaNYL 2MCG/ML ROPIVACAINE 1.25MG/ML 100 ML BAG EPI PRN (21:23)
[2021-06-24] MEDS ORDERED: ePHEDrine sulfate 50 MG/ML AMP IV PRN (21:23)
--- NOTE | 2021-06-24 21:23 | Anesthesiology Consultation ---
Date of Service June 24, 2021 Assessment & Plan Chart Review Chart Review: Patient NOT seen in Pre Admission Testing and Acceptable Risk for Labor Epidural Consults Requested none ASA ASA2 Proposed Anesthesia Anesthesia Type: Labor Epidural Risk / Benefits Reviewed With: PT / POA / Parent / Guardian, Accepts Plan and Informed Consent Obtained History Height/Weight Height: 5 ft 5 in Weight: 82.554 kg Allergies Allergy/AdvReac Type Severity Reaction Status Date / Time erythromycin base Allergy Unknown GI SYMPTOMS Verified 06/24/21 10:36 Medications Home Medications Medication Instructions Recorded Confirmed Last Taken prenat.vits,phillip,[id number] 1 tab PO DAILY 11/06/20 06/24/21 06/24/21 08:00 Active Medications Generic Name Dose Route Start Last Admin Trade Name Freq PRN Reason Stop Dose Admin Lactated Ringer's 1,000 mls @ 125 mls/hr 06/24/21 15:14 06/24/21 20:18 Lr IV 06/26/21 15:13 125 mls/hr .Q8H PRN Administration L&D Protocol Protocol Oxytocin 30 units in 500 mls @ 8 mls/hr 06/24/21 15:16 06/24/21 18:54 Pitocin IV 06/26/21 15:15 0.48 units/hr .Q24H PRN 8 mls/hr Labor Induction/Augmentation Titration Protocol 0.48 UNITS/HR Past Medical History Medical History (Updated 06/24/21 @ 15:48 by Autumn Horn MD) Amenorrhea Breast lump or mass Melanoma Varicella Exercise / Class Metabolic Activity II 4-5 Yardwork/Stairs/Walk up hill Past Family History Family History Father Hypertension Mother Thyroid disease Denies family history of Ovarian cancer Breast cancer Colorectal cancer Past Surgical History Surgical History H/O oral surgery History of anterior cruciate ligament surgery S/P appendectomy Past Anesthesia History No Hx of Anesthesia Complications and No Family Hx of Anesthesia Complications History of PONV No Hx of PONV and No Hx of Motion Sickness Social History Smoking Status: Never smoker Do You Dip or Chew Tobacco: No Hx Alcohol Use: No Hx Substance Use: No substance use type: does not use Physical Exam Vital Signs Last Vital Signs Temp 36.9 C 06/24/21 20:00 Pulse 76 06/24/21 21:19 Resp 16 06/24/21 20:00 BP 120/70 06/24/21 21:11 Pulse Ox 99 06/24/21 21:19 ENMT Mouth: no dentition abnormality Thyromental Distance: > or= 3.5 Finger Breadths Mallampati Class: II Neck normal visual inspection Respiratory normal respiratory effort Auscultation: lungs clear to auscultation bilaterally Cardiovascular Rate/Rhythm: regular rate and regular rhythm Psychiatric Orientation: alert Testing Laboratory Results 06/24/21 12:57 06/24/21 12:57
[2021-06-24] MEDS ORDERED: NURSING L&D Epidural Breakthrough Pain Update ONE (22:32)
--- NOTE | 2021-06-25 00:33 | Delivery Summary ---
Vaginal Delivery Summary Date of Service June 25, 2021 Vaginal Delivery Summary and 2nd Degree LAC PREOPERATIVE DIAGNOSIS: 1. Single intrauterine at 39 weeks gestation 2. Gestational hypertension POSTOPERATIVE DIAGNOSIS: 1. Single intrauterine at 39 weeks gestation 2. Gestational hypertension 3. Delivered PROCEDURE: 1. Normal spontaneous vaginal delivery. SURGEON: Autumn Horn MD ANESTHESIA: Epidural. ESTIMATED BLOOD LOSS: 400 mL FLUIDS: Continuous LR. URINE OUTPUT: None. COMPLICATIONS: None. CONDITION: Stable. INDICATIONS: 35 y/o at 39 wga presented yesterday from clinic with elevated blood pressures. Of note, she did have gestational hypertension in her first . Pre-eclampsia labs were drawn and wnl. She did meet criteria for gHTN over time and so was recommended for induction. Induction was begun with alas bulb and pitocin. Following bulb expulsion, pitocin was titrated up. She underwent artificial rupture of membranes and received an epidural for pain control. She then progressed to complete and desired to push FINDINGS: A viable female with Apgars of 8 and 9 at 1 and 5 minutes respectively. SPECIMEN: Cord blood OPERATIVE REPORT: The patient progressed to 10 cm, 100% effaced and +2 station, pushed over intact perineum with anesthesia to deliver a viable female infant, Apgars as above. Head of delivered in SONIA position. Loose nuchal cord was present and delivered through as body and shoulders subsequently rapidly delivered without difficulty. was delivered to maternal abdomen and nursing staff. Delayed cord clamping was performed for 60 seconds. Cord was clamped and cut. Cord blood was obtained. Placenta delivered spontaneously intact with 3-vessel cord. IV oxytocin and fundal massage were given for excellent hemostasis. Vagina, cervix, perineum, and placenta were inspected. A second degree laceration was noted and repaired using 3-0 Vicryl. Sponge and needle counts correct x2. No sponges were left behind. Mother and stable in immediate period. [facility] Vaginal Delivery Charge Vaginal Delivery Codes: 69036 global code for the antepartum, delivery, and post- Delivery Type Details: and 2nd Degree LAC
[2021-06-25] MEDS ORDERED: OXYTOCIN 30 UNITS/500 ML BAG IV PRN (00:53)
[2021-06-25] MEDS ORDERED: DIPHTHERIA/TETANUS/PERTUSSIS 0.5 ML SYR/VIAL IM ONE (00:53)
[2021-06-25] MEDS ORDERED: HYDROCORTISONE ACETATE 25 MG SUPP PR PRN (00:53)
[2021-06-25] MEDS ORDERED: ACETAMINOPHEN 325 MG TAB PO PRN (00:53)
[2021-06-25] MEDS ORDERED: bisacodyL 10 MG SUPP PR PRN (00:53)
[2021-06-25] MEDS ORDERED: BENZOCAINE 20% AER SPR 82.5 GM CAN EXT PRN (00:53)
[2021-06-25] MEDS ORDERED: SUPERCREAM 0.870% 15 GM JAR EXT PRN (00:53)
[2021-06-25] MEDS ORDERED: CALCIUM CARBONATE 500 MG CHEWABLE TAB PO PRN (02:50)
--- NOTE | 2021-06-25 07:30 | Anesthesia Procedure Note ---
Date of Service June 25, 2021 Anesthesia Post Epidural Note Vital Signs Vital Signs: Temp Pulse Resp BP Pulse Ox 36.9 C 104 H 20 130/81 98 06/25/21 02:40 06/25/21 02:40 06/25/21 02:40 06/25/21 02:40 06/25/21 02:40 Notes Mental Status: alert / awake / arousable and participated in evaluation Nausea / Vomiting: adequately controlled Pain: adequately controlled Airway Patency, RR, SpO2: stable & adequate BP & HR: stable & adequate Hydration State: stable & adequate Neuraxial Anesthesia: was administered and sensory block is resolving Anesthetic Complications: no major complications apparent and Pt Satisfied with anesthetic care Epidural: Removed without complications and With tip intact
[2021-06-25] MEDS: IBUPROFEN 600 MG TAB PO PRN ×3 (08:25→20:54)
[2021-06-25] MEDS: DOCUSATE SODIUM 100 MG CAP PO SCH ×2 (08:25→20:54)
[2021-06-25] MEDS: PRENATAL VITAMIN 1 TAB PO SCH (08:25)
[2021-06-25] MEDS: FERROUS SULFATE 325 MG TAB PO SCH (08:25)
[2021-06-25] MEDS ORDERED: ONDANSETRON 4 MG OD TAB PO PRN (15:40)
--- NOTE | 2021-06-25 16:46 | Obstetrical Progress Note ---
Date of Service June 25, 2021 Assessment & Plan (1) Gestational hypertension: Plan: with persistent nause and some epig pain, will check labs given her admission dx. pt agreeable. bps notably normal. Admission and Anticipated Discharge Date Admission Date: June 24, 2021 Subjective pt holding baby, no acute pain. has had persistent nause and noting some epigastric pain Review of Systems Constitutional: as per Subjective / HPI Physical Exam Constitutional: WD/WN, vitals as above Results & Data ([facility]) Vital Signs (Past 12 Hours) Vital Signs Temp Pulse Resp BP Pulse Ox 06/25/21 15:25 98.4 F 90 16 135/88 97 06/25/21 11:47 98.6 F 73 20 129/85 PG Care Time/CCT Total # of Minutes Spent Total Time Spent with Patient: Total time spent is greater than 50% in coordination of care (as documented) at patient's floor/unit and/or counseling patient: Coding Level of Care Code None Diagnoses Gestational hypertension O13.9
[2021-06-25 17:56] LABS: Hemoglobin 8.2 g/dL (12.0-16.0); Mean Corpuscular Hemoglobin 29.3 pg (25-34); Mean Corpuscular Hgb Conc 32.8 g/dL (32-36); Mean Corpuscular Volume 89.3 fL (80-100); Mean Platelet Volume 10.4 fL (7.4-10.4); Platelet Count 271 K/uL (130-400); RDW Coefficient of Variation 12.7 % (11.5-14.5); RDW Standard Deviation 41.5 fL (36.4-46.3); White Blood Count 10.88 K/uL (4.8-10.8)
[2021-06-25 18:20] LABS: Alanine Aminotransferase 22 U/L (12-78); Aspartate Aminotransferase 45 U/L (15-37); Bilirubin Direct < 0.1 mg/dl (0-0.2); Creatinine Clr Calc Pharmacy 132.7 ml/min; Est GFR (African American) 135.9 ml/min; Est GFR (Non-African American) 117.2 ml/min
[2021-06-25 18:28] LABS: Alkaline Phosphatase 132 U/L (45-117); Bilirubin,Total < 0.1 mg/dl (0.2-1); Total Protein 5.4 gm/dl (6.4-8.2)
--- NOTE | 2021-06-26 07:10 | Obstetrical Progress Note ---
Date of Service June 26, 2021 Assessment & Plan [] yo G[]P[] post op day[] from [method delivery] [problem], doing well. -Continue routine post care. -vital signs reviewed and WNL (Tmax []) -Blood Type [], GBS[], Rubella [] -Encourage ambulation, monitor and control pain with Motrin, tylenol PRN, resume regular diet, monitor lochia -encourage [] feeding -hemoglobin [] Physical Exam General: Alert, oriented. No acute distress. Cardiac: Regular rate and rhythm, no murmurs/rubs/gallops. Respiratory: Clear to auscultation bilaterally a/p, no wheezes/rales/rhonchi. No increased work of breathing. Symmetrical chest rise. No respiratory distress. Abdomen: Soft, nontender, nondistended. Bowel sounds present. Uterus: Uterine fundus firm, palpable [] cm below umbilicus. Lower Extremities: No lower extremity edema or swelling. No deep calf pain. Sheela's negative bilaterally.. Results & Data ([facility]) Vital Signs (Past 12 Hours) Vital Signs Temp Pulse Resp BP Pulse Ox 06/25/21 23:55 36.7 C 85 18 119/74 98 06/25/21 20:30 36.5 C 80 20 135/69 100
--- NOTE | 2021-06-26 07:11 | Obstetrical Progress Note ---
Date of Service June 26, 2021 Assessment & Plan (1) Gestational hypertension: (2) examination following vaginal delivery: stable, only very slight nausea with walking, has not needed more zofran. labs reviewed. plan to recheck lfts today and will likely d/c home. instructions reviewed and plan 6wk pp check. bps have been normal so don't feel needs office bp check but if persistent lab abnormality, may need to plan to recheck that. Subjective Ambulation: ambulating normally Voiding: no voiding problems Diet Tolerance:: regular diet Lochia:: Small Feeding Type:: bottle feeding denies pain issues. when walking will still feel that nausea and discomfort in epigastric area. Constitutional: + as per Subjective / HPI Physical Exam Constitutional WD/WN, vitals as above Respiratory normal respiratory effort, lungs clear to auscultation Cardiovascular Rate/Rhythm: regular rate and regular rhythm Gastrointestinal (Abdomen) Inspection/Auscultation: abdomen normal to inspection Percussion/Palpation: abdomen soft; abdomen nontender (no ruq pain or epig pain.) Fundus firm 2cm down Musculoskeletal nt calves no edema Neurologic grossly normal Psychiatric A+Ox3, euthymic affect Results & Data ([facility]) Vital Signs (Past 12 Hours) Vital Signs Temp Pulse Resp BP Pulse Ox 06/25/21 23:55 98.1 F 85 18 119/74 98 06/25/21 20:30 97.7 F 80 20 135/69 100
[2021-06-26 07:47] LABS: Alanine Aminotransferase 25 U/L (12-78); Albumin Level 2.1 gm/dl (3.4-5.0); Alkaline Phosphatase 129 U/L (45-117); Aspartate Aminotransferase 48 U/L (15-37); Bilirubin Direct < 0.1 mg/dl (0-0.2); Bilirubin,Total 0.2 mg/dl (0.2-1); Total Protein 5.7 gm/dl (6.4-8.2)
[2021-06-26] MEDS: FERROUS SULFATE 325 MG TAB PO SCH (08:56)
[2021-06-26] MEDS: DOCUSATE SODIUM 100 MG CAP PO SCH ×2 (08:56→21:18)
[2021-06-26] MEDS: PRENATAL VITAMIN 1 TAB PO SCH (08:56)
[2021-06-26] MEDS ORDERED: bisacodyL 5 MG TABEC PO SCH (20:00)
[2021-06-26] MEDS: IBUPROFEN 600 MG TAB PO PRN (21:15)
--- NOTE | 2021-06-27 06:14 | Obstetrical Progress Note ---
Date of Service <Elsa XiongDO - Last Filed: 06/27/21 06:14> June 27, 2021 Assessment & Plan <Elsa TyreseDO - Last Filed: 06/27/21 06:14> (1) Encounter for care and examination after delivery: 35 yo post op day2 from with gHTN, doing well. -Continue routine post care. -vital signs reviewed and WNL (Tmax 36.8) -Blood Type B+, GBS-, Rubella immune -Encourage ambulation, monitor and control pain with Motrin, tylenol PRN, resume regular diet, monitor lochia -encourage bottle feeding -hemoglobin 8.2 (06/25) Day #:: 2 <Kristin George MD - Last Filed: 06/27/21 07:18> (1) Encounter for care and examination after delivery: Subjective <Elsa TyreseDO - Last Filed: 06/27/21 06:14> Ambulation: ambulating normally Voiding: no voiding problems Passing Gas:: Yes Diet Tolerance:: regular diet Lochia:: Small Feeding Type:: bottle feeding Current Pain Level(1-10): 3 (well controlled on medication) Review of Systems Positive headache last night improved with tylenol Denies fever, chills, sweats Denies shortness of breath, difficulty breathing, chest pain, palpitations, chest pressure. Denies breast pain. Denies dysuria. Denies changes in vision. Physical Exam <Elsa TyreseDO - Last Filed: 06/27/21 06:14> General: Alert, oriented. No acute distress. Cardiac: Regular rate and rhythm, no murmurs/rubs/gallops. Respiratory: Clear to auscultation bilaterally a/p, no wheezes/rales/rhonchi. No increased work of breathing. Symmetrical chest rise. No respiratory distress. Abdomen: Soft, nontender, nondistended. Bowel sounds present. Uterus: Uterine fundus firm, palpable 1 cm below umbilicus. Lower Extremities: No lower extremity edema or swelling. No deep calf pain. Sheela's negative bilaterally.. Results & Data ([facility]) <Elsadeanne Xiong DO - Last Filed: 06/27/21 06:14> Vital Signs (Past 12 Hours) Vital Signs Temp Pulse Pulse Resp BP Pulse Ox 06/26/21 23:00 36.8 C 83 16 122/72 97 06/26/21 19:30 36.7 C 82 20 128/86 98 Laboratory Results 06/27/21 06/27/21 06/26/21 Range/Units 05:55 05:55 06:43 WBC Pending RBC Pending Hgb Pending Hct Pending MCV Pending MCH Pending MCHC Pending Plt Count Pending Total Bilirubin Pending 0.2 (0.2-1) mg/dl Direct Bilirubin Pending < 0.1 (0-0.2) mg/dl AST Pending 48 H (15-37) U/L ALT Pending 25 (12-78) U/L Alkaline Phosphatase Pending 129 H (45-117) U/L Total Protein Pending 5.7 L (6.4-8.2) gm/dl Albumin Pending 2.1 L (3.4-5.0) gm/dl Medications Administered Current Inpatient Medications Acetaminophen (Acetaminophen 325 Mg Tab) 650 mg PO Q6H PRN PRN Reason: Pain/NAVARRO/Fever Stop: 07/25/21 00:52 Benzocaine (Benzocaine 20% Aer Spr 82.5 Gm Can) 1 appln EXT PRN PRN PRN Reason: Perineal Discomfort Stop: 07/25/21 00:52 Bisacodyl (Bisacodyl 10 Mg Supp) 10 mg AL DAILY PRN PRN Reason: No BM on 2nd post- day Stop: 07/25/21 00:52 Calcium Carbonate (Calcium Carbonate 500 Mg Chewable Tab) 1,500 mg PO Q4H PRN PRN Reason: Heartburn Stop: 07/25/21 02:49 Last Admin: 06/25/21 03:09 Dose: 1,500 mg Documented by: Cocaine HCl (Supercream 0.870% 15 Gm Jar) 1 gm EXT BID PRN PRN Reason: Hemorrhoidal Inflammation Stop: 07/09/21 00:52 Docusate Sodium (Docusate Sodium 100 Mg Cap) 100 mg PO DAILY@ [facility] Stop: 07/25/21 07:59 Last Admin: 06/26/21 21:18 Dose: 100 mg Documented by: Ferrous Sulfate (Ferrous Sulfate 325 Mg Tab) 325 mg PO DAILY@ [facility] Stop: 07/25/21 07:59 Last Admin: 06/26/21 08:56 Dose: 325 mg Documented by: Hydrocortisone (Hydrocortisone Acetate 25 Mg Supp) 25 mg AL BID PRN PRN Reason: Hemorrhoidal Inflammation Stop: 07/25/21 00:52 Oxytocin (Pitocin) 30 units in 500 mls @ 333.333 mls/hr IV .Q1H30M PRN; Protocol PRN Reason: Bleeding Control Stop: 07/24/21 15:13 Oxytocin (Pitocin) 30 units in 500 mls @ 333.333 mls/hr IV .Q1H30M PRN; Protocol PRN Reason: Bleeding Control Ibuprofen (Ibuprofen 600 Mg Tab) 600 mg PO Q4H PRN PRN Reason: Pain/NAVARRO/Cramping/Fever Stop: 07/25/21 00:52 Last Admin: 06/26/21 21:15 Dose: 600 mg Documented by: Ondansetron HCl (Ondansetron 4 Mg Od Tab) 4 mg PO Q8H PRN PRN Reason: Nausea Stop: 07/25/21 15:39 Last Admin: 06/25/21 15:56 Dose: 4 mg Documented by: Bradyat Multivit/Technician Assistant/Iron/Folic Ac ( Vitamin 1 Tab) 1 tab PO DAILY@08 JUAN Stop: 07/25/21 07:59 Last Admin: 06/26/21 08:56 Dose: 1 tab Documented by: <Kristin George MD - Last Filed: 06/27/21 07:18> Co-Signing Physician Notes Resident Physician Supervision Note: I interviewed and examined the patient. Discussed with Dr. Xiong and agree with findings and plan as documented in the note. Any exceptions or clarifications a re listed here: Patient was kept until today to allow observation of BP and transaminitis. Today her AST/ALT are stable to slightly improved and her BP is normal. Asymptomatic from PIH standpoint. Recovered well. Will do 1wk BP check out of abundance of caution since labs have not completely normalized, and pt aware of that plan. Documented By: Kristin George MD, FACOG Resident Activity Tracking <Elsa Xinog DO - Last Filed: 06/27/21 06:14> Resident Involvement: Resident Care Provided Care Provided: OB Delivery
[2021-06-27 06:15] LABS: Hemoglobin 8.4 g/dL (12.0-16.0); Mean Corpuscular Hemoglobin 29.3 pg (25-34); Mean Corpuscular Hgb Conc 32.3 g/dL (32-36); Mean Corpuscular Volume 90.6 fL (80-100); Mean Platelet Volume 9.6 fL (7.4-10.4); Platelet Count 285 K/uL (130-400); RDW Coefficient of Variation 12.9 % (11.5-14.5); RDW Standard Deviation 42.3 fL (36.4-46.3); Red Blood Count 2.87 M/uL (4.2-5.4); White Blood Count 6.32 K/uL (4.8-10.8)
[2021-06-27 06:54] LABS: Alanine Aminotransferase 28 U/L (12-78); Albumin Level 2.3 gm/dl (3.4-5.0); Alkaline Phosphatase 130 U/L (45-117); Aspartate Aminotransferase 46 U/L (15-37); Bilirubin Direct < 0.1 mg/dl (0-0.2); Bilirubin,Total 0.2 mg/dl (0.2-1); Total Protein 5.9 gm/dl (6.4-8.2)
[2021-06-27] MEDS: DOCUSATE SODIUM 100 MG CAP PO SCH (08:40)
[2021-06-27] MEDS: FERROUS SULFATE 325 MG TAB PO SCH (08:40)
[2021-06-27] MEDS: PRENATAL VITAMIN 1 TAB PO SCH (08:40)
== END 2021-06-27 10:15 | disposition home or self-care (01) | DRG 807 ==
LOC: OPB 11:59 → 4S1 12:01 → 4S2 06-25 02:30 → 4N 06-26 18:03